=== PATIENT | male | born 1995 | race Two or more races ===

== ENCOUNTER 2020-12-13 19:43 | Emergency (ER) | payer SELFPAY ==
[~2020-12-13] VITALS: Ht 170.2 cm; Wt 81.8 kg
[2020-12-13] MEDS ORDERED: KETAMINE HCL 500 MG/10 ML VIAL. IV ONE (20:45)
[2020-12-13] MEDS ORDERED: MIDAZOLAM HCL/PF 5 MG/5 ML VIAL. NS ONE (20:45)
[2020-12-13] MEDS ORDERED: IV NORMAL SALINE 1000ML BAG 1,000 ML IV ONE (20:45)
--- NOTE | 2020-12-13 21:45 | RAD ---
Two-view right shoulder dated 12/13/2020. No comparison available. Clinical indication: Pain. FINDINGS: 2 views right shoulder show anterior dislocation of the humeral head relative to the glenoid. No appa rent fracture. No periostitis or bone destruction. IMPRESSION: Anterior shoulder dislocation. Electronically signed by: Kulwant Lynn MD (12/13/2020 9:43 PM) [id number]
--- NOTE | 2020-12-13 22:31 | PHYS DOC ---
Past Medical History Past Medical History: No Pertinent History Past Surgical History: No Surgical History Smoking Status: Never Smoker Alcohol Use: None General Adult EDM: Chief Complaint: SHOULDER INJURY HPI: HPI: Patient is a 25 year old [f__sex] who presents with [] Review of Systems: Review of Systems: Constitutional: Denies fever or chills. [] Eyes: Denies change in visual acuity. [] HENT: Denies nasal congestion or sore throat. [] Respiratory: Denies cough or shortness of breath. [] Cardiovascular: Denies chest pain or edema. [] GI: Denies abdominal pain, nausea, vomiting, bloody stools or diarrhea. [] : Denies dysuria. [] Musculoskeletal: Denies back pain or joint pain. [] Integument: Denies rash. [] Neurologic: Denies headache, focal weakness or sensory changes. [] Endocrine: Denies polyuria or polydipsia. [] Lymphatic: Denies swollen glands. [] Psychiatric: Denies depression or anxiety. [] Heart Score: Risk Factors: Risk Factors: DM, Current or recent (<one month) smoker, HTN, HLP, family history of CAD, obesity. Risk Scores: Score 0 - 3: 2.5% MACE over next 6 weeks - Discharge Home Score 4 - 6: 20.3% MACE over next 6 weeks - Admit for Clinical Observation Score 7 - 10: 72.7% MACE over next 6 weeks - Early Invasive Strategies Current Medications: Current Medications Medications (Trade) Dose Ordered Sig/Abhinav Start Time Stop Time Status Last Admin Dose Admin Ketamine HCl (Ketamine) 150 mg 1X ONCE 12/13/20 20:45 12/13/20 20:54 DC Midazolam HCl (Versed) 2 mg 1X ONCE 12/13/20 20:45 12/13/20 20:54 DC 12/13/20 22:16 2 MG Sodium Chloride 1,000 ml @ 1,000 mls/hr 1X ONCE 12/13/20 20:45 12/13/20 21:44 DC 12/13/20 20:58 1,000 MLS/HR Allergies: Allergies: Allergies Coded Allergies Type Severity Reaction Last Updated Verified No Known Drug Allergies 12/13/20 No Physical Exam: PE: Constitutional: Well developed, well nourished, no acute distress, non-toxic appearance. [] HENT: Normocephalic, atraumatic, bilateral external ears normal, oropharynx moist, no oral exudates, nose normal. [] Eyes: PERRLA, EOMI, conjunctiva normal, no discharge. [] Neck: Normal range of motion, no tenderness, supple, no stridor. [] Cardiovascular:Heart rate regular rhythm, no murmur [] Lungs & Thorax: Bilateral breath sounds clear to auscultation [] Abdomen: Bowel sounds normal, soft, no tenderness, no masses, no pulsatile masses. [] Skin: Warm, dry, no erythema, no rash. [] Back: No tenderness, no CVA tenderness. [] Extremities: No tenderness, no cyanosis, no clubbing, ROM intact, no edema. [] Neurologic: Alert and oriented X 3, normal motor function, normal sensory functi on, no focal deficits noted. [] Psychologic: Affect normal, judgement normal, mood normal. [] Current Patient Data: Vital Signs: Vital Signs Date Time Temp Pulse Resp B/P (MAP) Pulse Ox O2 Delivery O2 Flow Rate FiO2 12/13/20 20:11 98.1 83 20 120/85 (97) 96 Room Air 98.1 EKG: EKG: [] Radiology/Procedures: Radiology/Procedures: IMAGING REPORT Signed PATIENT: JANES ZAMORA ACCOUNT: [id number] : 1995 LOCATION: ER AGE: 25 SEX: M EXAM STATUS: REG ER ORD. PHYSICIAN: TORY VILLALOBOS DO REASON: dislocpain PROCEDURE: SHOULDER 2+V RIGHT Two-view right shoulder dated 12/13/2020. No comparison available. Clinical indication: Pain. FINDINGS: 2 views right shoulder show anterior dislocation of the humeral head relative to the glenoid. No apparent fracture. No periostitis or bone destruction. IMPRESSION: Anterior shoulder dislocation. Electronically signed by: Kulwant Lynn MD (12/13/2020 9:43 PM) [id number] DICTATED and SIGNED BY: KULWANT LYNN MD DATE: 12/13/20 [id number] IMAGING REPORT Signed PATIENT: JANES ZAMORA ACCOUNT: [id number] : 1995 LOCATION: ER AGE: 25 SEX: M EXAM STATUS: REG ER ORD. PHYSICIAN: TORY VILLALOBOS DO REASON: POST REDUCTION PROCEDURE: SHOULDER 2+V RIGHT Exam: Right shoulder 2 views INDICATION: Post reduction TECHNIQUE: Frontal and transscapular Y views the right shoulder Comparisons: Radiograph earlier today FINDINGS: Improved alignment at the glenohumeral joint. No acute fracture identified. Soft tissues are unremarkable. Bone mineralization is normal. IMPRESSION: Improved alignment at the glenohumeral joint. Electronically signed by: Bryant Andujar MD (12/13/2020 11:02 PM) [facility] DICTATED and SIGNED BY: BRYANT ANDUJAR MD DATE: 12/13/20 [id number] Indication: Joint dislocation Consent: Consent was obtained. Procedure: The pre-reduction exam showed distal perfusion and neurologic function to be normal.. The patient was placed in the appropriate position. Anesthesia/pain control with 125 mg ketamine and 2 mg of Versed given prior to ketamine. Reduction of the right anterior shoulder was performed by myself and assistant family teacher, via traction/countertraction. Post reduction films were obtained and revealed satisfactory reduction. A post-reduction exam revealed distal perfusion and neurologic function to be normal. The affected area was immobilized with right shoulder immobilizer. The patient tolerated the procedure well. Complications: none. Normal axillary nerve sensation and radial pulses pre and post sedation Course & Med Decision Making: Course & Med Decision Making Pertinent Labs and Imaging studies reviewed. (See chart for details) Will discharge home with strict ED return precautions were given for neurovascular deficit, worsening pain or repeat trauma. Encouraged urgent outpatient follow-up with PMD and orthopedic surgery. Life-threatening processes were considered but are low suspicion at this time, given history, physical exam and ED workup. Pt was educated on all prescription medications and adverse effects. All patient's questions were answered and pt was stable at time of discharge. Life/limb-threatening differential includes but is not limited to, avascular necrosis, septic arthritis, malignancy, fracture/ligamentous injury/overuse, decompression sickness, seronegative spondyloarthropathies, trauma including dislocation/fracture, Lyme disease, lupus, arthritis differentials, gout/pseudogout or decompression sickness. I spoken with the patient and her caregivers. I explained the patient's condition, diagnoses and treatment plan based on the information available to me at this time. I have answered the patient and her caregiver's questions and addressed any concerns. The patient and her caregivers have a good understanding of patient's diagnosis, condition and treatment plan as can be expected at this point. Vital signs have been stable. Patient's condition is stable and appropriate for discharge from the emergency department. Patient will pursue further outpatient evaluation with primary care physician or other designated or consulting physician as outlined in the discharge instructions. The patient and/or caregivers are agreeable to this plan of care and follow-up instructions have been explained in detail. The patient and/or caregivers have received these instructions in written form and have expressed an understanding of the discharge instructions. The patient and/or caregivers are aware that any significant change of condition or worsening of symptoms should prompt immediate return to this or the closest emergency department or call to 911. David Disclaimer: David Disclaimer: This electronic medical record was generated, in whole or in part, using a voice recognition dictation system. Departure Departure Impression: Primary Impression: Anterior dislocation of right shoulder Additional Impression: Closed dislocation of right shoulder Disposition: 01 DC HOME SELF CARE/HOMELESS Condition: STABLE Referrals: NO PCP (PCP) FOLLOW UP WITH FAMILY MEDICINE: Family Medicine Address: [address] [facility] [address] [place] [address] Patient Instructions: Sedation, Moderate, Adult, Shoulder Dislocation, Shoulder Immobilizer Additional Instructions: FOLLOW UP WITH ORTHOPEDICS: Keep shoulder immobilizer on until [facility] Orth[facility] Surgery [facility] Address: [address] [facility] [address] [place] [address] TORY VILLALOBOS DO Dec 13, 2020 22:31
[2020-12-13 22:35] VITALS: BP 127/58
--- NOTE | 2020-12-13 23:05 | RAD ---
Exam: Right shoulder 2 views INDICATION: Post reduction TECHNIQUE: Frontal and transscapular Y views the right shoulder Comparisons: Radiograph earlier today FINDINGS: Improved alignment at the glenohumeral joint. No acute fracture identified. Soft tissues are unremark able. Bone mineralization is normal. IMPRESSION: Improved alignment at the glenohumeral joint. Electronically signed by: Bryant Lockhart MD (12/13/2020 11:02 PM) [email or web address]
[2020-12-14 00:22] VITALS: BP 124/72
== END 2020-12-14 00:23 | disposition home or self-care (01) ==
LOC: ER 19:43
DX: S43.084A Other dislocation of right shoulder joint, initial encounter (principal); X50.9XXA Other and unspecified overexertion or strenuous movements or postures, initial encounter; Y93.89 Activity, other specified; Y92.89 Other specified places as the place of occurrence of the external cause; Y99.8 Other external cause status
CPT/HCPCS: 23650; 73030; 96360; 96361; 99285; J2250; J3490; J7030